=== PATIENT | female | born 1995 ===

== ENCOUNTER 2017-03-28 21:39 | Emergency (ER) | payer OTHER ==
[2017-03-28 21:56] VITALS: BP 99/63; PULSE 63; TEMP 97.8
[2017-03-28] MEDS ORDERED: ONDANSETRON 4 MG/2 ML VIAL IVPUSH ONE (23:17)
[2017-03-28] MEDS ORDERED: SODIUM CHLORIDE 1,000 ML IV STA (23:17)
[2017-03-28] MEDS ORDERED: KETOROLAC TROMETHAMINE 30 MG/1 ML VIAL IVPUSH ONE (23:18)
--- NOTE | 2017-03-28 23:18 | PDOC ---
History of Present Illness - General Chief Complaint: Pain Stated Complaint: ABD PAIN/VOMITING Time Seen by Provider: 03/28/17 21:45 - History of Present Illness Initial Comments: this 21-year-old woman presents with 1 day history of nausea with multiple episodes of vomiting with resulting weakness/lethargy. Patient states that in recent months, she has had severe nausea/vomiting on the first day of her menstruation. She also has severe cramping on the first day. Patient states that she is seen a commercial food instructor in the past (a few years ago); ultrasound and other workup was reportedly normal. Past History - Past Medical History Home Medications: Ambulatory Orders Levothyroxine Sodium [Levo-T] 75 mcg PO DAILY 03/28/17 Ondansetron [Zofran Odt -] 4 mg SL BID PRN #10 od.tablet 03/29/17 COPD: No - Immunization History Immunization Up to Date: Yes - Suicide/Smoking/Psychosocial Hx Smoking History: Never smoked Have you smoked in the past 12 months: No Number of Cigarettes Smoked Daily: 0 Information on smoking cessation initiated: No Hx Alcohol Use: No Drug/Substance Use Hx: No Substance Use Type: None *Physical Exam - Vital Signs Last Vital Signs Temp Pulse Resp BP Pulse Ox 97.8 F 63 14 99/63 98 03/28/17 21:40 03/28/17 21:40 03/28/17 21:40 03/28/17 21:40 03/28/17 21:40 *DC/Admit/Observation/Transfer Diagnosis at time of Disposition: Dysmenorrhea, Dehydration - Discharge Dispostion Disposition: HOME Condition at time of disposition: Stable - Prescriptions Prescriptions: Ondansetron [Zofran Odt -] 4 mg SL BID PRN #10 od.tablet PRN Reason: Nausea - Referrals - Patient Instructions Printed Discharge Instructions: Dehydration Additional Instructions: Continue to drink plenty of fluids Zofran ODT 4 mg up to twice a day as needed for nausea Continue ibuprofen/naproxen/acetaminophen as needed for pain Follow-up with commercial food instructor as planned Return to ER if you have severe symptoms - Post Discharge Activity
[2017-03-28] MEDS ORDERED: ONDANSETRON 4 MG/2 ML VIAL ONE (23:25)
[2017-03-28] MEDS ORDERED: KETOROLAC TROMETHAMINE 30 MG/1 ML VIAL ONE (23:25)
== END 2017-03-29 01:08 | disposition home or self-care (01) ==
LOC: FER 21:39
PROC: 3E0333Z Introduction of Anti-inflammatory into Peripheral Vein, Percutaneous Approach (ICD-10-PCS; principal; 2017-03-28)
PROC: 3E033GC Introduction of Other Therapeutic Substance into Peripheral Vein, Percutaneous Approach (ICD-10-PCS; 2017-03-28)
PROC: 3E0337Z Introduction of Electrolytic and Water Balance Substance into Peripheral Vein, Percutaneous Approach (ICD-10-PCS; 2017-03-28)
DX: N94.6 Dysmenorrhea, unspecified (principal); E86.0 Dehydration
CPT/HCPCS: 99283-25

== ENCOUNTER 2017-04-25 17:17 | Emergency (ER) | payer OTHER ==
--- NOTE | 2017-04-25 18:11 | PDOC ---
Rapid Medical Evaluation Time Seen by Provider: 04/25/17 18:08 Medical Evaluation: 04/25/17 18:08 I have performed a brief in-person evaluation of this patient. The patient presents with a chief complaint of: pelvic pain, nauseous, lightheadedness, "i think i'm more pale now", LMP 03/28, denies vag bldg, SOB, was here 03/28/17 for same, reports this happens at "start of period recently" Pertinent physical exam findings: HR 111 I have ordered the following: EKG, CBC, CMP, T&S The patient will proceed to the ED for further evaluation. Discharge Disposition - Diagnosis Pelvic pain - Referrals - Patient Instructions - Post Discharge Activity
[2017-04-25 18:13] VITALS: BP 120/67; PULSE 111; TEMP 99.2; BMI 22.8
[2017-04-25 21:04] LABS: BASO % 0.2 % (0-2.0); EOS % 0.2 % (0-4.5); HEMOGLOBIN 11.9 GM/dL (10.7-15.3); LYMPH % 6.5 % (8-40); MCH 30.5 pg (25.7-33.7); MCHC 34.1 g/dl (32.0-36.0); MEAN CELL VOLUME 89.6 fl (80-96); MEAN PLT VOLUME 8.7 fl (7.5-11.1); MONO % 2.7 % (3.8-10.2); NEUT % 90.4 % (42.8-82.8); PLATELET COUNT 240 K/MM3 (134-434); RDW 12.7 % (11.6-15.6); WHITE BLOOD COUNT 7.3 K/mm3 (4.0-10.0)
[2017-04-25 21:25] LABS: ALBUMIN 3.8 g/dl (3.4-5.0); ANION GAP 8 (8-16); BLOOD UREA NITROGEN 7 mg/dL (7-18); CALCIUM 7.8 mg/dL (8.5-10.1); CHLORIDE 106 mmol/L (98-107); CO2 24 mmol/L (21-32); GLUCOSE,RANDOM 96 mg/dL (74-106); POTASSIUM 3.6 mmol/L (3.5-5.1); SODIUM 138 mmol/L (136-145)
[2017-04-25 21:36] LABS: ALK PHOS 73 U/L (45-117); BILIRUBIN,TOTAL 0.4 mg/dL (0.2-1.0); CREATININE 0.5 mg/dL (0.55-1.02); SGOT/AST 14 U/L (15-37); SGPT/ALT 23 U/L (12-78)
== END 2017-04-25 22:44 | disposition left against medical advice (07) ==
LOC: JER 17:17
DX: Z53.21 Procedure and treatment not carried out due to patient leaving prior to being seen by health care provider (principal)
CPT/HCPCS: 36415; 80053; 84703; 85025; 86850; 86900; 86901; 99281-25